=== PATIENT | female | born 1985 | race Asian ===

== ENCOUNTER 2017-12-15 00:05 | Inpatient (IN) | payer SELFPAY ==
[~2017-12-15] VITALS: Ht 167.6 cm; Wt 77.1 kg
[2017-12-15] MEDS ORDERED: PREN1SGL25 PO (01:20)
[2017-12-15] MEDS ORDERED: FERR-252 PO (01:20)
[2017-12-15] MEDS ORDERED: CARBOPROST 250 MCG/ML AMP IM PRN (01:25)
[2017-12-15] MEDS ORDERED: NALBUPHINE HYDROCHLORIDE 10 MG/ML VIAL IVP PRN (01:25)
[2017-12-15] MEDS ORDERED: PROMETHAZINE 25 MG/ML VIAL IVP PRN (01:25)
[2017-12-15] MEDS ORDERED: OXYTOCIN 10 UNITS/ML VIAL IM SCH (01:25)
[2017-12-15] MEDS ORDERED: METHYLERGONOVINE 0.2 MG/ML AMP IM PRN ×2 (01:25→07:50)
[2017-12-15 01:53] LABS: BASOPHILS % (AUTO) 0.3 % (0.0-2.0); EOSINOPHILS # (AUTO) 0.1 K/uL (0-0.4); EOSINOPHILS % (AUTO) 1.5 % (0.0-4.0); HEMOGLOBIN 11.5 g/dL (12.0-16.0); LYMPHOCYTES # (AUTO) 2.1 K/uL (2.5-16.5); LYMPHOCYTES % (AUTO) 24.3 % (20.5-51.1); MEAN CORPUSCULAR HEMOGLOBIN 31 pg (27-31); MEAN CORPUSCULAR HGB CONC 34 g/dL (33-37); MEAN CORPUSCULAR VOLUME 92.1 fL (80-94); MONOCYTES # (AUTO) 0.8 K/uL (0.8-1.0); MONOCYTES % (AUTO) 8.8 % (1.7-9.3); NEUTROPHILS # (AUTO) 5.7 K/uL (1.8-7.7); NEUTROPHILS % (AUTO) 65.1 % (42.2-75.2); PLATELET COUNT (AUTO) 114 K/uL (140-450); RED BLOOD CELL COUNT(AUTO) 3.69 MIL/uL (4.20-5.40); WHITE BLOOD COUNT (AUTO) 8.7 K/uL (4.8-10.8)
[2017-12-15 02:01] LABS: APPEARANCE,URINE SL CLOUDY (CLEAR); BILIRUBIN,URINE NEGATIVE (NEGATIVE); BLOOD, URINE NEGATIVE (NEGATIVE); COLOR,URINE ORANGE (YELLOW); LEUKOCYTE ESTERASE ,URINE 3+ (NEGATIVE); NITRITE, URINE NEGATIVE (NEGATIVE); PH,URINE 6.5 (5.0-9.0); UGLUCOSE NEGATIVE (NEGATIVE)
[2017-12-15 02:06] LABS: ANION GAP 11.5 (8-16); CARBON DIOXIDE 24.1 mmol/L (21-32); CREATININE 0.7 mg/dL (0.6-1.3); POTASSIUM 3.6 mmol/L (3.5-5.1)
[2017-12-15] MEDS ORDERED: MISOPROSTOL 25 MCG TAB ONE ×2 (02:07→07:57)
[2017-12-15 02:13] LABS: ALBUMIN 2.6 g/dL (3.4-5.0); TOTAL BILIRUBIN 0.2 mg/dL (0.0-1.0)
[2017-12-15] MEDS: LACTATED RINGERS 1,000 ML IV SCH ×2 (02:20→09:59)
[2017-12-15 02:54] LABS: RBC,URINE 0-5 (RARE) /HPF (0-5)
[2017-12-15 03:11] VITALS: BP 106/67
[2017-12-15] MEDS ORDERED: oxyCODONE/APAP 5/325 MG 1 TAB TAB PO PRN (07:50)
[2017-12-15] MEDS ORDERED: MEASLES, MUMPS, AND RUBELLA 1 VIAL SQVAC PRN (07:50)
[2017-12-15] MEDS ORDERED: TEMAZEPAM 15 MG CAP PO PRN (07:50)
[2017-12-15] MEDS ORDERED: OXYTOCIN 10 UNITS/ML VIAL IM PRN (07:50)
[2017-12-15] MEDS ORDERED: HYDROcodone/APAP 5/325 MG 1 TAB TAB PO PRN (07:50)
[2017-12-15] MEDS ORDERED: IBUPROFEN 800 MG TAB PO PRN (07:50)
[2017-12-15] MEDS ORDERED: BENZOCAINE/MENTHOL 20%-0.5% 60 GM CAN TP PRN (07:50)
[2017-12-15] MEDS ORDERED: MISOPROSTOL 25 MCG TAB VG PRN (08:00)
--- NOTE | 2017-12-15 08:51 | NUR ---
PATIENT HAS BEEN SCREENED AND CATEGORIZED LOW NUTRITION RISK. PATIENT WILL BE SEEN WITHIN 7 DAYS OF ADMISSION. 12/21/[address]
[2017-12-15] MEDS ORDERED: OXYTOCIN 20 UNITS in LACTATED RINGERS 1,000 ML IV SCH (12:21)
[2017-12-15] MEDS ORDERED: BUPIVACAINE 0.125%/NS PREMIX 250 ML EPI SCH (14:05)
[2017-12-15] MEDS ORDERED: NALBUPHINE 10 MG/ML AMP ONE (16:43)
[2017-12-15] MEDS ORDERED: PROMETHAZINE 25 MG/ML VIAL ONE (16:44)
[2017-12-15] MEDS ORDERED: OXYTOCIN 10 UNITS/ML VIAL ONE (19:48)
[2017-12-15] MEDS ORDERED: LIDOCAINE MPF 1% - **ER/OR** 10 ML ONE (20:17)
[2017-12-15] MEDS ORDERED: DOCUSATE SOD/SENNA 50/8.6 MG 1 TAB PO SCH (21:00)
[2017-12-16 06:10] LABS: HEMATOCRIT 33.9 % (36-48); HEMOGLOBIN 11.2 g/dL (12.0-16.0)
[2017-12-16] MEDS ORDERED: DOCUSATE CALCIUM 240 MG GELCAP PO SCH (11:45)
[2017-12-16] MEDS ORDERED: BISACODYL 5 MG TABEC PO PRN (11:55)
== END 2017-12-17 22:37 | disposition home or self-care (01) | DRG 775 ==
LOC: MLD 00:05 → MFCC 12-16 01:15
PROVIDERS: ADMIT Obstetrics & Gynecology; ATTEND Obstetrics & Gynecology
PROC: 10E0XZZ Delivery of Products of Conception, External Approach (ICD-10-PCS; principal; 2017-12-15)
PROC: 0KQM0ZZ Repair Perineum Muscle, Open Approach (ICD-10-PCS; 2017-12-15)
PROC: 10907ZC Drainage of Amniotic Fluid, Therapeutic from Products of Conception, Via Natural or Artificial Opening (ICD-10-PCS; 2017-12-15)
PROC: 00HU33Z Insertion of Infusion Device into Spinal Canal, Percutaneous Approach (ICD-10-PCS; 2017-12-15)
PROC: 3E0R3BZ Introduction of Anesthetic Agent into Spinal Canal, Percutaneous Approach (ICD-10-PCS; 2017-12-15)
DX: O48.0 Post-term pregnancy (principal); O70.1 Second degree perineal laceration during delivery; Z37.0 Single live birth; Z3A.40 40 weeks gestation of pregnancy
CPT/HCPCS: 36415; 51702; 59200; 59409; 80053; 81001; 85018; 85025; 86592; 86886; 86900; 86901; 87086; J2001; J2300; J2550; J2590; J3490; J7120